=== PATIENT | female | born 1970 | race Caucasian/White ===

== ENCOUNTER → 2018-05-12 | Outpatient (CLI) | payer BC ==
--- NOTE | 2018-05-12 08:36 | Diagnostic Imaging Report ---
INDICATION: Routine screening. COMPARISON: 05/13/2016 and 05/09/2015. TECHNIQUE: 2D and 3D bilateral screening mammography was performed with CAD. FINDINGS: Scattered fibroglandular densities are identified bilaterally. The parenchymal pattern is stable. No mass or malignant-appearing microcalcifications are seen. The axillae are unremarkable. IMPRESSION: No mammographic features suspicious for malignancy are identified. ACR BI-RADS Category 1: Negative. Result letter will be mailed to the patient. Note: At least 10% of breast cancer is not imaged by mammography. Dictated by: Dictated on workstation # [id number]
== END ==
LOC: RAD 07:39
PROVIDERS: ATTEND Family Medicine
DX: Z12.31 Encounter for screening mammogram for malignant neoplasm of breast (principal)
CPT/HCPCS: 77067

== ENCOUNTER → 2019-05-17 | Outpatient (CLI) | payer BC ==
--- NOTE | 2019-05-17 15:00 | Diagnostic Imaging Report ---
INDICATION: Routine screening. COMPARISON: 05/12/2018 and 05/13/2016. TECHNIQUE: 2D and 3D bilateral screening mammography was performed with CAD. FINDINGS: Scattered fibroglandular densities are identified bilaterally. No dominant mass or malignant appearing microcalcifications are seen. An intraparenchymal lymph node in the axillary tail on the left is again noted. The axillae are unremarkable. IMPRESSION: No mammographic features suspicious for malignancy are identified. ACR BI-RADS Category 2: Benign findings. Result letter will be mailed to the patient. Note: At least 10% of breast cancer is not imaged by mammography. Dictated by: Dictated on workstation # [id number]
== END ==
LOC: RAD 10:45
PROVIDERS: ATTEND Nurse Practitioner Family
DX: Z12.31 Encounter for screening mammogram for malignant neoplasm of breast (principal)
CPT/HCPCS: 77067

== ENCOUNTER → 2019-07-15 | Outpatient (CLI) | payer BC ==
--- NOTE | 2019-07-15 17:23 | Diagnostic Imaging Report ---
PROCEDURE: US Non-ob pelvis comp/trans. TECHNIQUE: Multiple realtime grayscale images were obtained of the pelvis in various projections endovaginally. Transabdominal imaging was also performed. INDICATION: Dysfunctional bleeding. FINDINGS: A small amount of fluid in the lower uterine segment canal and cervical canal noted. No vascularized mass. No abnormal color Doppler blood flow. No fibroid. No adnexal lesion. The left ovary appeared normal. The right could not be visualized. Incidental follicular cyst in the left ovary of 1.5 cm noted. IMPRESSION: There is likely a small amount of fluid within the lower endometrial and endocervical canal. No thickening of the endometrial mucosa. No fibroid. No vascularized lesion. Physiologic left ovarian cyst. Nonvisualization of the right ovary. Dictated by: Dictated on workstation # [id number]
== END ==
LOC: RAD 15:15
PROVIDERS: ATTEND Obstetrics & Gynecology
DX: N93.8 Other specified abnormal uterine and vaginal bleeding (principal); N83.202 Unspecified ovarian cyst, left side
CPT/HCPCS: 76830; 76856

== ENCOUNTER → 2021-01-18 | Outpatient (CLI) | payer BC ==
--- NOTE | 2021-01-18 09:08 | Diagnostic Imaging Report ---
INDICATION: Routine screening. Comparison is made with prior mammogram 05/17/2019 and 05/12/2018. 2-D and 3-D bilateral screening mammography was performed with CAD. Scattered fibroglandular densities are identified bilaterally. There is a new circumscribed nodule in the right breast medially at anterior to mid depth. This is best seen on the CC view. Additional views are recommended. Left breast is unremarkable. No malignant appearing microcalcifications are seen. Axillae are unremarkable. IMPRESSION: BI-RADS 0 Right breast density. Additional views are recommended for further evaluation. ACR BI-RADS Category 0: Incomplete. (Needs additional imaging evaluation). Result letter will be mailed to the patient. Note: At least 10% of breast cancer is not imaged by mammography. Dictated by: Dictated on workstation # [id number]
== END ==
LOC: RAD 07:45
PROVIDERS: ATTEND Family Medicine
DX: Z12.31 Encounter for screening mammogram for malignant neoplasm of breast (principal); R92.8 Other abnormal and inconclusive findings on diagnostic imaging of breast
CPT/HCPCS: 77063; 77067

== ENCOUNTER → 2021-01-31 | Outpatient (CLI) | payer BC ==
--- NOTE | 2021-01-31 16:54 | Diagnostic Imaging Report ---
INDICATION: Right breast density. COMPARISON: Correlation is made with the screening mammogram from 01/18/2021 and diagnostic mammogram from earlier this same day. FINDINGS: Sonographic interrogation of the medial right breast was performed. There is a tiny cyst at the 3 o'clock location 4 to 5 cm from the nipple measuring 3 mm x 2 mm. This likely accounts for the mammographic density. No solid mass is identified. No internal vascularity is detected. IMPRESSION: Tiny cyst at the 3 o'clock location of the right breast, corresponding to the mammographic density. The patient may return to routine annual screening mammography. ACR BI-RADS Category 2: Benign findings. Dictated by: Dictated on workstation # [id number]
--- NOTE | 2021-02-01 11:22 | Diagnostic Imaging Report ---
INDICATION: Right breast density. COMPARISON is made with recent screening study from 01/18/2021. Unilateral right 2-D and 3-D diagnostic mammography was performed with CAD. Spot compression CC, rolled CC and conventional 90 degree lateral views were performed. There is a tiny nodule in the medial right breast. This has fairly benign features. No other masses are seen. No suspicious microcalcifications are identified. IMPRESSION: BI-RADS 0 Tiny nodular density in the medial anterior right breast. Further evaluation with ultrasound is recommended and will be performed today. ACR BI-RADS Category 0: Incomplete. (Needs additional imaging evaluation). Result letter will be mailed to the patient. Note: At least 10% of breast cancer is not imaged by mammography. Dictated by: Dictated on workstation # [id number]
== END ==
LOC: RAD 13:53
PROVIDERS: ATTEND Nurse Practitioner Family
DX: N60.01 Solitary cyst of right breast (principal)
CPT/HCPCS: 76642; 77065; G0279

== ENCOUNTER → 2022-01-28 | Outpatient (CLI) | payer BC ==
--- NOTE | 2022-01-28 11:30 | Diagnostic Imaging Report ---
INDICATION: Routine screening. COMPARISON: 01/18/2021 and 05/17/2019. TECHNIQUE: 2D and 3D bilateral screening mammography was performed with CAD. FINDINGS: Scattered fibroglandular densities are identified bilaterally. The parenchymal pattern is stable. No mass or malignant-appearing microcalcifications are seen. The axillae are unremarkable. IMPRESSION: No mammographic features suspicious for malignancy are identified. ACR BI-RADS Category 1: Negative. Result letter will be mailed to the patient. Note: At least 10% of breast cancer is not imaged by mammography. Dictated by: Dictated on workstation # [id number]
== END ==
LOC: RAD 09:25
PROVIDERS: ATTEND Family Medicine
DX: Z12.31 Encounter for screening mammogram for malignant neoplasm of breast (principal)
CPT/HCPCS: 77063; 77067

== ENCOUNTER → 2022-11-21 | Outpatient (CLI) | payer BC ==
--- NOTE | 2022-11-21 17:24 | Diagnostic Imaging Report ---
INDICATION: Wrist pain. EXAMINATION: Right wrist, 11/21/2022. FINDINGS: Three views of the wrist. There is radiocarpal joint space narrowing with narrowing at the first carpometacarpal joint space. No acute fractures or dislocations appreciated. Soft tissues are unremarkable. IMPRESSION: 1. No acute osseous abnormality with degenerative findings as above. Dictated by: Dictated on workstation # [id number]
== END ==
LOC: RAD 16:12
PROVIDERS: ATTEND Nurse Practitioner Family
DX: M19.031 Primary osteoarthritis, right wrist (principal)
CPT/HCPCS: 73110

== ENCOUNTER → 2023-03-16 | Outpatient (CLI) | payer BC ==
--- NOTE | 2023-03-16 16:14 | Diagnostic Imaging Report ---
Indication: Routine screening. Comparison is made with prior mammograms 01/28/2022 and 01/18/2021. 2-D and 3-D bilateral screening mammography was performed with CAD. Scattered fibroglandular densities are identified bilaterally. The parenchymal pattern is stable. No mass or malignant-appearing microcalcifications are seen. Axillae are unremarkable. IMPRESSION: BI-RADS Category 1 No mammographic features suspicious for malignancy are identified. ACR BI-RADS Category 1: Negative. Result letter will be mailed to the patient. Note: At least 10% of breast cancer is not imaged by mammography. Dictated by: Dictated on workstation # [id number]
== END ==
LOC: RAD 14:16
PROVIDERS: ATTEND Family Medicine
DX: Z12.31 Encounter for screening mammogram for malignant neoplasm of breast (principal)
CPT/HCPCS: 77063; 77067